=== PATIENT | female | born 1950 | race Caucasian/White ===

== ENCOUNTER 2016-09-13 08:43 | Outpatient (CLI) ==
[2015-12-19 10:26] VITALS: BMI 25.0
[2016-09-13 11:17] LABS: PROTHROMBIN TIME 18.4 SEC (9.3-11.0)
== END 2016-09-13 08:44 | disposition home or self-care (01) ==
LOC: LAB 08:43
PROVIDERS: ATTEND Internal Medicine
DX: Z51.81 Encounter for therapeutic drug level monitoring (principal); Z79.01 Long term (current) use of anticoagulants; Z95.2 Presence of prosthetic heart valve
CPT/HCPCS: 36415; 85610

== ENCOUNTER 2016-11-29 08:34 | Outpatient (CLI) ==
[2015-12-19 10:26] VITALS: BMI 25.0
[2016-11-29 09:20] LABS: PROTHROMBIN TIME 27.6 SEC (9.3-11.0)
== END 2016-11-29 08:35 | disposition home or self-care (01) ==
LOC: LAB 08:34
PROVIDERS: ATTEND Internal Medicine
DX: Z51.81 Encounter for therapeutic drug level monitoring (principal); Z79.899 Other long term (current) drug therapy; Z95.2 Presence of prosthetic heart valve
CPT/HCPCS: 36415; 85610

== ENCOUNTER 2017-01-31 07:13 | Outpatient (CLI) ==
[2015-12-19 10:26] VITALS: BMI 25.0
[2017-01-31 07:45] LABS: BASOPHILS # (AUTO) 0.1 K/uL (0-0.2); BASOPHILS % (AUTO) 0.4 % (0.0-3.0); EOSINOPHILS # (AUTO) 0.1 K/ul (0.0-0.7); EOSINOPHILS % (AUTO) 0.6 % (0.0-7.0); HEMOGLOBIN 13.3 g/dl (12.0-16.0); IMMATURE GRANULOCYTE % (AUTO) 0.4 % (0.0-5.0); LYMPHOCYTES # (AUTO) 1.3 K/uL (0.60-3.4); LYMPHOCYTES % (AUTO) 9.9 (10.0-50.0); MEAN CORPUSCULAR HEMOGLOBIN 30.8 pg (27.0-31.0); MONOCYTES # (AUTO) 1.7 K/uL (0.4-2.0); MONOCYTES % (AUTO) 12.4 (0-10); NEUTROPHILS # (AUTO) 10.3 K/ul (2.0-6.9); NEUTROPHILS % (AUTO) 76.3; PLATELET COUNT 181 10^3/uL (140-440); RED BLOOD COUNT 4.32 10^6/ul (4.20-5.40); WHITE BLOOD COUNT 13.44 K/ul (4.6-10.2)
[2017-01-31 08:10] LABS: PROTHROMBIN TIME 21.5 SEC (9.3-11.0)
[2017-01-31 08:28] LABS: CREATININE 0.8 mg/dL (0.60-1.30)
[2017-01-31 08:50] LABS: ALBUMIN 3.4 g/dL (3.4-5.0); ALBUMIN/GLOBULIN RATIO 0.92; ANION GAP 15.3; BILIRUBIN,TOTAL 0.79 mg/dL (0.00-1.20); BUN/CREATININE RATIO 8.75; CALCIUM 9.2 mg/dL (8.2-10.2); CHOL/HDL RATIO 4.1 (4.5-5.5); POTASSIUM 3.3 mmol/L (3.5-5.10); TOTAL PROTEIN 7.1 g/dL (5.8-8.1)
--- NOTE | 2017-01-31 09:06 | CT ---
EXAM: CT head without contrast. HISTORY: Headache and dizziness. Recent head trauma. Initial presentation. COMPARISON: 10/18/2009. TECHNIQUE: Multiple axial images of the brain were obtained from the skull base through the vertex without intravenous contrast. FINDINGS: There is heterogeneous high-density subdural collection in the right frontal, temporal an d parietal regions, greatest in the right frontal region which measures up to 0.6 cm diameter on cor onal image 30. Mild mass effect noted with approximately 0.4 cm of leftward midline shift. There i s also high density in the anterior left frontal subdural region which extends along the falx, measu ring no greater than 0.3 cm. The petty-white differentiation is maintained without evidence for acut e large vascular territory infarction. There are areas of periventricular and subcortical white mat ter low attenuation. The cortical sulci and cerebral ventricles are symmetrically enlarged. The ba ryan cisterns are well visualized. There is no hydrocephalus. The paranasal sinuses and mastoid air cells are clear. The calvarium is intact. IMPRESSION: 1. Critical result: Acute bilateral subdural hematomas, larger on the right with mild mass effect and leftward midline shift. 2. Chronic small vessel ischemic changes and atrophy. Comment: Findings discussed with Dr. Ordaz at 9:01 a.m. on 01/31/2017.
--- NOTE | 2017-01-31 09:08 | CT ---
EXAM: CT orbits without contrast HISTORY: Initial presentation for facial trauma. Right periorbital bruising COMPARISON: Head CT 10/18/2009 TECHNIQUE: Multiple axial images of the orbits were obtained without intravenous contrast. Images were reformatted in the sagittal and coronal planes. FINDINGS: Mild right periorbital soft tissue swelling noted. Globes and intraorbital structures ar e intact. No facial fracture identified. Paranasal sinuses and mastoid air cells are clear. Note is made of a right frontal/temporal/parietal high density subdural fluid collection measuring u p to 0.6 cm maximum diameter with mild mass effect and approximately 0.4 cm leftward midline shift. There is high density in the anterior left frontal subdural space extending along the falx measurin g up to 0.3 cm. IMPRESSION: 1. Mild right periorbital contusion. No orbital/intraorbital abnormality or facial fracture. 2. Bilateral subdural hematomas, larger on the right measuring up to 0.6 cm with mild mass effect a nd leftward midline shift. Comment: Findings were discussed with Dr. Ordaz at 9:01 a.m. on 01/31/2017.
== END 2017-01-31 07:14 | disposition home or self-care (01) ==
LOC: CAR 07:13
PROVIDERS: ATTEND Internal Medicine
DX: Z51.81 Encounter for therapeutic drug level monitoring (principal); Z79.899 Other long term (current) drug therapy; D64.9 Anemia, unspecified; E78.5 Hyperlipidemia, unspecified; I10 Essential (primary) hypertension; R51 Headache; R42 Dizziness and giddiness; S09.90XA Unspecified injury of head, initial encounter; Z95.2 Presence of prosthetic heart valve; W19.XXXA Unspecified fall, initial encounter
CPT/HCPCS: 36415; 80053; 80061; 82607; 83036; 84443; 85025; 85610; 93005; 93010

== ENCOUNTER 2017-04-15 10:29 | Outpatient (CLI) ==
[2015-12-19 10:26] VITALS: BMI 25.0
[2017-04-15 10:44] LABS: BASOPHILS % (AUTO) 0.5 % (0.0-3.0); EOSINOPHILS # (AUTO) 0.2 K/ul (0.0-0.7); EOSINOPHILS % (AUTO) 2.4 % (0.0-7.0); HEMATOCRIT 37.7 % (37.0-47.0); HEMOGLOBIN 13.3 g/dl (12.0-16.0); IMMATURE GRANULOCYTE % (AUTO) 0.3 % (0.0-5.0); LYMPHOCYTES # (AUTO) 1.4 K/uL (0.60-3.4); LYMPHOCYTES % (AUTO) 17.5 (10.0-50.0); MEAN CORPUSCULAR HEMOGLOBIN 30.2 pg (27.0-31.0); MEAN CORPUSCULAR HGB CONC 35.3 (31.8-35.4); MEAN CORPUSCULAR VOLUME 85.5 fl (81.0-99.0); MONOCYTES # (AUTO) 0.9 K/uL (0.4-2.0); MONOCYTES % (AUTO) 11.6 (0-10); NEUTROPHILS # (AUTO) 5.3 K/ul (2.0-6.9); NEUTROPHILS % (AUTO) 67.7; PLATELET COUNT 222 10^3/uL (140-440); RED BLOOD COUNT 4.41 10^6/ul (4.20-5.40); WHITE BLOOD COUNT 7.76 K/ul (4.6-10.2)
[2017-04-15 10:56] LABS: PROTHROMBIN TIME 16.8 SEC (9.3-11.0)
[2017-04-15 11:22] LABS: ALBUMIN 3.5 g/dL (3.4-5.0); ALBUMIN/GLOBULIN RATIO 0.95; ANION GAP 13.7; BILIRUBIN,TOTAL 0.57 mg/dL (0.00-1.20); BUN/CREATININE RATIO 11.42; CALCIUM 8.7 mg/dL (8.2-10.2); CHOL/HDL RATIO 4.3 (4.5-5.5); CREATININE 0.7 mg/dL (0.60-1.30); POTASSIUM 3.7 mmol/L (3.5-5.10); TOTAL PROTEIN 7.2 g/dL (5.8-8.1)
== END 2017-04-15 10:30 | disposition home or self-care (01) ==
LOC: LAB 10:29
PROVIDERS: ATTEND Internal Medicine
DX: E78.5 Hyperlipidemia, unspecified (principal); Z95.2 Presence of prosthetic heart valve; Z79.01 Long term (current) use of anticoagulants
CPT/HCPCS: 36415; 80053; 80061; 83036; 84443; 85025; 85610

== ENCOUNTER 2017-05-02 14:16 | Outpatient (CLI) | payer OTHER ==
[2015-12-19 10:26] VITALS: BMI 25.0
[2017-05-02 15:11] LABS: PROTHROMBIN TIME 16.4 SEC (9.3-11.0)
== END 2017-05-02 14:17 | disposition home or self-care (01) ==
LOC: LAB 14:16
PROVIDERS: ATTEND Internal Medicine
DX: Z95.2 Presence of prosthetic heart valve (principal)
CPT/HCPCS: 36415; 85610

== ENCOUNTER 2017-06-10 11:05 | Outpatient (CLI) ==
[2015-12-19 10:26] VITALS: BMI 25.0
[2017-06-10 11:51] LABS: PROTHROMBIN TIME 16.5 SEC (9.3-11.0)
== END 2017-06-10 11:06 | disposition home or self-care (01) ==
LOC: LAB 11:05
PROVIDERS: ATTEND Internal Medicine
DX: Z95.2 Presence of prosthetic heart valve (principal)
CPT/HCPCS: 36415; 85610

== ENCOUNTER 2017-10-08 08:54 | Outpatient (CLI) | payer OTHER ==
[2015-12-19 10:26] VITALS: BMI 25.0
== END 2017-10-08 08:55 | disposition home or self-care (01) ==
LOC: LAB 08:54
PROVIDERS: ATTEND Internal Medicine
DX: D64.9 Anemia, unspecified (principal); E78.5 Hyperlipidemia, unspecified; I10 Essential (primary) hypertension; K21.9 Gastro-esophageal reflux disease without esophagitis; M19.90 Unspecified osteoarthritis, unspecified site; Z79.899 Other long term (current) drug therapy
CPT/HCPCS: 36415; 80053; 80061; 83036; 84443; 85025; 85610

== ENCOUNTER 2017-10-25 14:08 | Outpatient (CLI) | payer OTHER ==
[2015-12-19 10:26] VITALS: BMI 25.0
== END 2017-10-25 14:09 | disposition home or self-care (01) ==
LOC: LAB 14:08
PROVIDERS: ATTEND Internal Medicine
DX: Z51.81 Encounter for therapeutic drug level monitoring (principal); Z79.01 Long term (current) use of anticoagulants
CPT/HCPCS: 36415; 85610

== ENCOUNTER 2018-01-08 13:47 | Outpatient (CLI) | payer OTHER ==
[2015-12-19 10:26] VITALS: BMI 25.0
== END 2018-01-08 13:48 | disposition home or self-care (01) ==
LOC: LAB 13:47
PROVIDERS: ATTEND Internal Medicine
DX: D64.9 Anemia, unspecified (principal); E78.5 Hyperlipidemia, unspecified; I10 Essential (primary) hypertension; Z95.2 Presence of prosthetic heart valve; Z79.899 Other long term (current) drug therapy
CPT/HCPCS: 36415; 80053; 80061; 83036; 84443; 85025; 85610

== ENCOUNTER 2018-05-08 09:09 | Outpatient (CLI) ==
[2015-12-19 10:26] VITALS: BMI 25.0
== END 2018-05-08 09:10 | disposition home or self-care (01) ==
LOC: LAB 09:09
PROVIDERS: ATTEND Internal Medicine
DX: D64.9 Anemia, unspecified (principal); I10 Essential (primary) hypertension; E78.5 Hyperlipidemia, unspecified; Z95.2 Presence of prosthetic heart valve; Z79.899 Other long term (current) drug therapy
CPT/HCPCS: 36415; 80053; 80061; 83036; 84443; 85025; 85610

== ENCOUNTER 2018-05-19 06:47 | Outpatient (CLI) | payer OTHER ==
[2015-12-19 10:26] VITALS: BMI 25.0
== END 2018-05-19 06:48 | disposition home or self-care (01) ==
LOC: CAR 06:47
PROVIDERS: ATTEND Internal Medicine
DX: Z95.2 Presence of prosthetic heart valve (principal)

== ENCOUNTER 2018-09-19 12:59 | Emergency (ER) ==
[2018-09-19 13:06] VITALS: BP 179/97; TEMP 98.2; BMI 23.1
--- NOTE | 2018-09-19 13:46 | DI ---
EXAM: Two views of the chest. History: Cough. Comparison: Chest radiograph 12/19/2015 Findings: Heart size is upper limits of normal. Sternotomy wires. Bilateral interstitial thickenin g. No pleural fluid and no pneumothorax. No acute osseous abnormalities. Bronchial wall thickening . Impression: Bilateral interstitial thickening compatible with interstitial pneumonitis.
--- NOTE | 2018-09-19 13:49 | CT ---
EXAM: CT of the head without contrast History: Dizziness and headache, hypertension. Comparison: Head CT 01/31/2017 Technique: Multiplanar CT images through the head were obtained without the administration of IV con trast Findings: The visualized paranasal sinuses and mastoid air cells are clear in general. No acute ace varial abnormalities. Postsurgical changes of the right frontal calvarium. Intracranially the ventricular and cisternal spaces are normal in size, shape and configuration for a patient of this age. No dominant mass or midline shift. No hydrocephalous. No acute intracranial hemorrhage or abnormal extraaxial fluid collections. Impression: No acute intracranial process.
--- NOTE | 2018-09-19 14:41 | ED.PDOC ---
General ED Provider: Dr. ELVIA VALLE Chief Complaint: Hypertension Stated Complaint: HYPERTENSION, AFTER A SITUATION BETWEEN THE PT AND A THIRD [facility] PT'S Time Seen by Physician: 13:00 Mode of Arrival: Wheelchair Information Source: Patient Exam Limitations: No limitations Primary Care Provider: JUVENTINO BLANCAS Nursing and Triage Documentation Reviewed and Agree: Yes Does patient meet sepsis criteria?: No If yes, has appropriate treatment been initiated?: No System Inflammatory Response Syndrome: Not Applicable Sepsis Protocol: For patient's 13 years and over: Temp is 96.8 and below OR 101 and greater Pulse >90 BPM Resp >20/minute Acutely Altered Mental Status Are patient's symptoms suggestive of a new infection, such as: -Pneumonia -Skin, Soft Tissue -Endocarditis -UTI -Bone, Joint Infection -Implantable Device -Acute Abdominal Infection -Wound Infection -Meningitis -Blood Stream Catheter Infection -Unknown Cardiovascular Complaint Exam - Hypertension Complaint/Exam Symptoms Are: Still present Timing: Intermittent Aggravating: Reports: None Alleviating: Reports: None Associated Signs and Symptoms: Reports: Anxiety, Headache. Denies: Chest pain, Vision changes, Recent stress, Numbness, Tingling, Weakness, Dizziness, Short of air, Swelling Related Surgical History: Reports: None Cardiac Risk Factors: Reports: Elevated lipids Recent Change in Medications: No A/V Nicking: No Papilledema Present: No JVD Present: No Carotid Bruit Present: No Femoral Pulses Bounding: No Differential Diagnoses: Hypertension Quality Indicator For Non-Traumatic Chest Pain/Syncope: EKG Performed Review of Systems - Review Of Systems Constitutional: Reports: Malaise Eyes: Reports: No symptoms Ears, Nose, Mouth, Throat: Reports: No symptoms Respiratory: Reports: Cough Cardiac: Reports: No symptoms GI: Reports: No symptoms : Reports: No symptoms Musculoskeletal: Reports: No symptoms Skin: Reports: No symptoms Neurological: Reports: No symptoms Endocrine: Reports: No symptoms Hematologic/Lymphatic: Reports: No symptoms All Other Systems: Reviewed and Negative Past Medical History - Past Medical History Previously Healthy: Yes Endocrine: Reports: Dyslipidemia Cardiovascular: Reports: None Respiratory: Reports: None Hematological: Reports: None Gastrointestinal: Reports: None Genitourinary: Reports: None Neuro/Psych: Reports: Depression Musculoskeletal: Reports: Back Pain Cancer: Reports: None Last Menstrual Period: NA Other Pertinent Past Medical History: LUMBAR COMPRESSION - Surgical History General Surgical History: Reports: Orthopedic (LUMBAR COMPRESSION FX), Other ( AORTIC VALVE REPLACEMENT) - Family History Family History: Reports: Unknown - Social History Smoking Status: Former smoker Hx Substance Use: No Alcohol Screening: None Physical Exam - Physical Exam Appearance: Well-appearing, No pain distress, Well-nourished Eyes: JUDD, EOMI, Conjunctiva clear ENT: Ears normal, Nose normal, Oropharynx normal Respiratory: Airway patent, Breath sounds clear, Breath sounds equal, Respirations nonlabored Cardiovascular: RRR, Pulses normal, No rub, No murmur GI/: Soft, Nontender, No masses, Bowel sounds normal, No Organomegaly Musculoskeletal: Normal strength, ROM intact, No edema, No calf tenderness Skin: Warm, Dry, Normal color Neurological: Sensation intact, Motor intact, Reflexes intact, Cranial nerves intact, Alert, Oriented Psychiatric: Affect appropriate, Mood appropriate Interpretation - Rn Progressive Care Time of Rn Progressive Care Interpretation: 13:41 Rate: Normal Rhythm: Sinus Ectopy: None - EKG Interpretation Time of EKG #1: 13:41 Rate: Normal Rhythm: Sinus Ectopy: None Melber: NL ST Segment: Normal Physician Notification - Case Discussed Physician Notified: PMD Time of Notification: 14:41 Critical Care Note - Critical Care Note Total Time (mins): 0 Course - Course Hematology/Chemistry: 09/19/18 14:05 09/19/18 14:05 Orders, Labs, Meds: Lab Review 09/19/18 09/19/18 09/19/18 14:05 14:05 14:05 WBC 7.78 RBC 4.26 Hgb 12.1 Hct 36.7 L MCV 86.2 MCH 28.4 MCHC 33.0 RDW Coeff of [place]elo 13.9 Plt Count 220 Immature Gran % (Auto) 0.3 Neut % (Auto) 67.2 Lymph % (Auto) 17.6 [place] % (Auto) 10.5 H Eos % (Auto) 3.6 Baso % (Auto) 0.8 Immature Gran # (Auto) 0.0 Neut # (Auto) 5.2 Lymph # (Auto) 1.4 [place] # (Auto) 0.8 Eos # (Auto) 0.3 Baso # (Auto) 0.1 PT 29.4 H INR 3.04 APTT 42.5 H Sodium 137.9 Potassium 4.13 Chloride 101.2 Carbon Dioxide 29.0 Anion Gap 11.83 BUN 12.0 Creatinine 0.86 Estimated GFR (MDRD) 66.00 BUN/Creatinine Ratio 13.95 Glucose 95.0 Calcium 8.84 Total Bilirubin 0.40 AST 40.3 H ALT 21.4 Alkaline Phosphatase 119.7 Total Creatine Kinase 93.6 Troponin I < 0.012 Total Protein 7.36 Albumin 3.89 Globulin 3.47 Albumin/Globulin Ratio 1.12 Orders Category Date Time Status EKG-(ED ONLY) Stat CARDIO 09/19/18 13:23 Completed CBC W/ AUTO DIFF Stat LAB 09/19/18 14:05 Completed COMPREHENSIVE METABOLIC PANEL Stat LAB 09/19/18 14:05 Completed CREATINE KINASE Stat LAB 09/19/18 14:05 Completed PARTIAL THROMBOPLASTIN TIME Stat LAB 09/19/18 14:05 Completed PT WITH INR Stat LAB 09/19/18 14:05 Completed TROPONIN I Stat LAB 09/19/18 14:05 Completed CHEST, 2 VIEWS PA & LAT Stat RADS 09/19/18 13:[address] HEAD W/O CONTRAST Stat RADS 09/19/18 13:23 Completed Vital Signs: Temp Pulse Resp BP Pulse Ox 09/19/18 13:00 98.2 F 76 18 179/97 H 96 MARLA Risk Score MARLA Risk Score: Risk Score Odds of by 30D 0 0.1 (0.1-0.2) 1 0.3 (0.2-0.3) 2 0.4 (0.3-0.5) 3 0.7 (0.6-0.9) 4 1.2 (1.0-1.5) 5 2.2 (1.9-2.6) 6 3.0 (2.5-3.6) 7 4.8 (3.8-6.1) Departure - Departure Time of Disposition: 14:41 Disposition: HOME SELF-CARE Discharge Problem: Hypertension Qualifiers: Hypertension type: unspecified Qualified Code(s): I10 - Essential (primary) hypertension Instructions: Hypertension (ED) Condition: Good Pt referred to PMD for follow-up: Yes IPMP verified?: No Additional Instructions: Please call your Family Physician as soon as possible to schedule a follow-up appointment. Allergies/Adverse Reactions: Allergies ibandronate sodium [From Boniva] Adverse Reaction (Mild, Verified 09/19/18 13:07 ) stomach issues raloxifene HCl [From Evista] Adverse Reaction (Mild, Verified 09/19/18 13:07) migraine simvastatin Adverse Reaction (Mild, Verified 09/19/18 13:07) Home Medications: Ambulatory Orders Albuterol Sulfate [Albuterol Sulfate Hfa] 8.5 gm IH QID PRN 08/08/15 Atorvastatin Calcium [Lipitor] 10 mg PO BEDTIME 08/08/15 Citalopram Hydrobromide [Citalopram HBr] 40 mg PO BEDTIME PRN 08/08/15 Warfarin Sodium [Coumadin] 5 mg PO DAILY 08/08/15 Cholecalciferol (Vitamin D3) [D3-2000] 2,000 unit PO DAILY 09/19/18 Pantoprazole Sodium [Protonix] 40 mg PO DAILY 09/19/18 Warfarin Sodium 10 mg PO WEEKLY 09/19/18
== END 2018-09-19 15:24 | disposition home or self-care (01) ==
LOC: ED 12:59
DX: I10 Essential (primary) hypertension (principal); E78.5 Hyperlipidemia, unspecified; Z95.2 Presence of prosthetic heart valve; Z79.01 Long term (current) use of anticoagulants; Z79.899 Other long term (current) drug therapy
CPT/HCPCS: 36415; 80053; 82550; 84484; 85025; 85610; 85730; 93005; 93010; 99283

== ENCOUNTER 2018-09-25 09:37 | Outpatient (CLI) | END 2018-09-25 09:38 | disposition home or self-care (01) | LOC: LAB 09:37 | PROVIDERS: ATTEND Internal Medicine | DX: Z51.81 Encounter for therapeutic drug level monitoring (principal); Z79.01 Long term (current) use of anticoagulants; I10 Essential (primary) hypertension; F31.9 Bipolar disorder, unspecified; K21.9 Gastro-esophageal reflux disease without esophagitis; E78.5 Hyperlipidemia, unspecified; D64.9 Anemia, unspecified; M19.90 Unspecified osteoarthritis, unspecified site; Z79.899 Other long term (current) drug therapy; Z95.2 Presence of prosthetic heart valve | CPT/HCPCS: 36415; 80053; 80061; 83036; 84443; 85025; 85610 ==

== ENCOUNTER 2018-10-02 08:02 | Outpatient (CLI) ==
--- NOTE | 2018-10-03 09:36 | MAMMO ---
EXAM: Bilateral digital screening mammogram (2-D and 3-D) History: Screening Comparison: None available. Findings: MLO and CC views of bilateral breasts demonstrate scattered fibroglandular breast parenchy ma. 2.5 cm spiculated mass within the central left breast anterior depth containing microcalcificati ons. CAD was reviewed by the radiologist. Tomosynthesis was performed. Impression: Indeterminate spiculated mass within the left breast containing microcalcifications. Rec ommend further evaluation with left breast ultrasound. BIRADS 0, incomplete. Further evaluation recommended
== END 2018-10-02 08:03 | disposition home or self-care (01) ==
LOC: RAD 08:02
PROVIDERS: ATTEND Internal Medicine
DX: Z12.31 Encounter for screening mammogram for malignant neoplasm of breast (principal)

== ENCOUNTER 2018-10-03 10:26 | Outpatient (CLI) | payer OTHER ==
--- NOTE | 2018-10-03 11:04 | US ---
EXAM: Left breast ultrasound. History: Left breast mass. Comparison: Bilateral mammogram 10/02/2018 Technique: Multiple sonographic images through the left breast were obtained. Color duplex Doppler was used to interrogate vascular flow. Findings: Spiculated irregular hypoechoic mass within the left breast at 11 o'clock 7 cm from nipple measuring 2.2 cm associated microcalcifications. This correlates with mammography. There are a few abnormal lymph nodes within the left axilla demonstrating thickened cortex the largest measuring 1.5 cm. Impression: 1. 11 o'clock left breast mass is highly suspicious for malignancy. Recommend ultrasound guided bio psy. 2. Left axillary lymph nodes are suspicious for malignancy. Recommend ultrasound guided biopsy. BIRADS 5, highly suspicious for malignancy
== END 2018-10-03 10:27 | disposition home or self-care (01) ==
LOC: RAD 10:26
PROVIDERS: ATTEND Internal Medicine
DX: R92.8 Other abnormal and inconclusive findings on diagnostic imaging of breast (principal)

== ENCOUNTER 2019-01-09 12:32 | Outpatient (CLI) ==
[2019-01-09 17:54] VITALS: BP 122/70; TEMP 97.5
== END 2019-01-09 12:33 | disposition home or self-care (01) ==
LOC: LAB 12:32 → OPMED 12:33
PROVIDERS: ATTEND Internal Medicine
DX: D59.1 Other autoimmune hemolytic anemias (principal)
CPT/HCPCS: 36415; 36430; 36591; 85014; 85018; 86850; 86900; 86922